=== PATIENT | male | born 1980 | race American Indian/Alaskan Native ===

== ENCOUNTER 2017-04-02 23:52 | Emergency (ER) | payer SELFPAY ==
[2017-04-03] MEDS ORDERED: MOTRIN PO ONE (00:11)
[2017-04-03 00:28] VITALS: BP 100/78
--- NOTE | 2017-04-03 01:16 | XRay Report ---
FINAL REPORT PROCEDURE: XR FOREARM RT TECHNIQUE: RIGHT forearm radiographs, AP and lateral views. CPT 38366 HISTORY: laceration with glass COMPARISON: No prior studies are available for comparison. FINDINGS: Fracture (s) and/or Dislocation(s): None . Joint space(s): Normal . Soft tissues: Normal . Bone mineralization: Normal . Foreign bodies: None . IMPRESSION: Normal Examination
[2017-04-03] MEDS ORDERED: XYLOCAINE 2%/ EPI 1:200,000 INFILTRATI ONE (03:40)
[2017-04-03] MEDS ORDERED: XYLOCAINE 2% INFILTRATI ONE (03:47)
[2017-04-03] MEDS ORDERED: NORCO 7.5/325 PO ONE (04:08)
--- NOTE | 2017-04-03 05:00 | Emergency Department Report ---
- General Chief Complaint: Wound/Laceration Stated Complaint: RIGHT ARM LACERATION Time Seen by Provider: 04/03/17 03:59 Source: patient Mode of arrival: Ambulatory Limitations: No Limitations - History of Present Illness Initial Comments: 37-year-old -[place] male comes in for sustain a laceration on right forearm after fish tank fell and broke. Patient reports pain to 8 out of 10. He had ibuprofen at triage. He reports he does not know when his last tetanus. He has no past medical history currently takes no medications has no known drug allergies. -: Sudden Location: other (right forearm) Extremity Location: Right: Forearm Place: work Patient Tetanus UTD: No Context: accidental Associated Symptoms: pain - Related Data Previous Rx's Medication Instructions Recorded Last Taken Type Amoxicillin [Amoxicillin TAB] 875 mg PO BID #20 tablet 11/04/13 Unknown Rx Ibuprofen [Motrin 800 MG tab] 800 mg PO Q8H PRN #30 tablet 11/04/13 Unknown Rx Cephalexin [Keflex] 500 mg PO BID #20 capsule 04/03/17 Unknown Rx Ibuprofen 800 mg PO Q8HR PRN #15 tablet 04/03/17 Unknown Rx Allergies Allergy/AdvReac Type Severity Reaction Status Date / Time No Known Allergies Allergy Verified 11/04/13 17:39 ED Review of Systems ROS: Stated complaint: RIGHT ARM LACERATION Other details as noted in HPI ED Past Medical Hx - Past Medical History Previous Medical History?: No - Surgical History Past Surgical History?: No - Social History Smoking Status: Current Some Day Smoker Substance Use Type: None - Medications Home Medications: Home Medications Medication Instructions Recorded Confirmed Last Taken Type Amoxicillin [Amoxicillin TAB] 875 mg PO BID #20 tablet 11/04/13 Unknown Rx Ibuprofen [Motrin 800 MG tab] 800 mg PO Q8H PRN #30 tablet 11/04/13 Unknown Rx Cephalexin [Keflex] 500 mg PO BID #20 capsule 04/03/17 Unknown Rx Ibuprofen 800 mg PO Q8HR PRN #15 tablet 04/03/17 Unknown Rx ED Physical Exam - General Limitations: No Limitations ED Course Vital Signs 04/02/17 23:57 Temperature 98.2 F Pulse Rate 66 Respiratory 18 Rate Blood Pressure 100/78 O2 Sat by Pulse 99 Oximetry - Laceration /Wound Repair Left Proximal Arm Wound Location: upper extremity Irrigated w/ Saline (ccs): 30 Betadine Prep?: Yes Anesthesia: 1% Lidocaine Volume Anesthetic (ccs): 7 Wound Debrided: minimal Wound Repaired With: sutures Suture Size/Type: 3:0 Number of Sutures: 12 Layer Closure?: No Sterile Dressing Applied?: Yes Progress: Tolerated well ED Medical Decision Making - Medical Decision Making This is been evaluated by this provider fast track. I discussed the patient we' ll give him a [place] for pain. We will need to suture the wound. Discussed the patient placement antibiotics. He needs to return back to the emergency room within 7-10 days for sutural removal area discussed that he needs to keep the area clean and dry return sooner if he notices any infection redness purulent discharge swelling. Please keep the bandage clean and dry. Critical care attestation.: If time is entered above; I have spent that time in minutes in the direct care of this critically ill patient, excluding procedure time. ED Disposition Clinical Impression: Laceration of forearm, right Qualifiers: Encounter type: initial encounter Qualified Code(s): S51.811A - Laceration without foreign body of right forearm, initial encounter Disposition: DC-01 TO HOME OR SELFCARE Is pt being admited?: No Does the pt Need Aspirin: No Condition: Stable Instructions: Suture Care (ED), Laceration (ED) Additional Instructions: You needs to return back to the emergency room within 7-10 days for sutural removal.Please keep the area clean and dry return sooner if he notices any infection redness purulent discharge swelling. Please keep the bandage clean and dry. Prescriptions: Cephalexin [Keflex] 500 mg PO BID #20 capsule Ibuprofen 800 mg PO Q8HR PRN #15 tablet PRN Reason: Pain Referrals: BILLY MERAZ MD [Primary Care Provider] - 3-5 Days Forms: Work/School Release Form(ED), Accompanied Note
== END 2017-04-03 05:15 | disposition home or self-care (01) ==
LOC: ED 23:52
DX: S51.811A Laceration without foreign body of right forearm, initial encounter (principal); F17.200 Nicotine dependence, unspecified, uncomplicated; W22.8XXA Striking against or struck by other objects, initial encounter; Y93.89 Activity, other specified; Y92.89 Other specified places as the place of occurrence of the external cause; Y99.8 Other external cause status
CPT/HCPCS: 99283

== ENCOUNTER 2017-04-12 06:28 | Emergency (ER) | payer SELFPAY ==
[2017-04-12 06:38] VITALS: BP 119/89
--- NOTE | 2017-04-12 07:41 | Emergency Department Report ---
Suture/Staple Removal - [facility] Chief Complaint: Laceration/Recheck/Suture Stated Complaint: SUTURE REMOVAL Time Seen by Provider: 04/12/17 07:17 When Sutures or [place] Placed: 8-10 Days Ago Wound Location: right arm ED Review of Systems ROS: Stated complaint: SUTURE REMOVAL Other details as noted in HPI Constitutional: denies: chills, fever Eyes: denies: eye pain, eye discharge, vision change ENT: denies: ear pain, throat pain Respiratory: denies: cough, shortness of breath, wheezing Cardiovascular: denies: chest pain, palpitations Endocrine: no symptoms reported Gastrointestinal: denies: abdominal pain, nausea, diarrhea Genitourinary: denies: urgency, dysuria Musculoskeletal: denies: back pain, joint swelling, arthralgia Skin: denies: rash, lesions Neurological: denies: headache, weakness, paresthesias Psychiatric: denies: anxiety, depression Hematological/Lymphatic: denies: easy bleeding, easy bruising ED Past Medical Hx - Past Medical History Previous Medical History?: No - Surgical History Past Surgical History?: No - Social History Smoking Status: Never Smoker Substance Use Type: None - Medications Home Medications: Home Medications Medication Instructions Recorded Confirmed Last Taken Type Amoxicillin [Amoxicillin TAB] 875 mg PO BID #20 tablet 11/04/13 Unknown Rx Ibuprofen [Motrin 800 MG tab] 800 mg PO Q8H PRN #30 tablet 11/04/13 Unknown Rx Cephalexin [Keflex] 500 mg PO BID #20 capsule 04/03/17 Unknown Rx Ibuprofen 800 mg PO Q8HR PRN #15 tablet 04/03/17 Unknown Rx Suture Removal Exam - Exam General: Vital signs noted. No distress. Alert and acting appropriately. Wound: No Pathologic Erythema, No Tenderness, No Drainage, No Pus, No Wound Dehiscence Other Systems: All other systems reviewed and are unremarkable. ED Course Vital Signs 04/12/17 06:34 Temperature 98 F Pulse Rate 65 Respiratory 16 Rate Blood Pressure 119/89 O2 Sat by Pulse 99 Oximetry ED Recheck MDM - Medical Decision Making 29-year-old male presents with suture removal Laceration was cleaned with alcohol, 12 sutures were removed, wound was cleaned and sterilely draped I discussed the patient to apply triple antibiotic daily. I discussed acute wound care with the patient. Vital signs are normal patient has not acute distress Critical care attestation.: If time is entered above; I have spent that time in minutes in the direct care of this critically ill patient, excluding procedure time. ED Disposition Clinical Impression: Visit for suture removal Disposition: DC- TO HOME OR SELFCARE Is pt being admited?: No Does the pt Need Aspirin: No Condition: Stable Instructions: Acute Wound Care (ED) Additional Instructions: Make sure to follow up with the primary care physician as discussed. Take all your medications as you've been prescribed. If you have any worsening symptoms or develop new symptoms please return to ED immediately. Referrals: PRIMARY CARE, [Primary Care Provider] - 3-5 Days Forms: Work/School Release Form(ED) Time of Disposition: 07:40
== END 2017-04-12 07:49 | disposition home or self-care (01) ==
LOC: ED 06:28
DX: S41.111D Laceration without foreign body of right upper arm, subsequent encounter (principal); W45.8XXD Other foreign body or object entering through skin, subsequent encounter

== ENCOUNTER 2018-08-26 12:52 | Emergency (ER) | payer SELFPAY ==
[2018-08-26 13:07] VITALS: BP 111/73
--- NOTE | 2018-08-26 13:19 | Emergency Department Report ---
ED ENT HPI - General Chief complaint: Earache Stated complaint: EAR PAIN Time Seen by Provider: 08/26/18 13:06 Source: patient Mode of arrival: Ambulatory Limitations: No Limitations - History of Present Illness Initial comments: 38 y/o male comes in for right ear pain and drainage for the last 3 day. No fever. MD complaint: ear pain Onset/Timin -: days(s) Location: L ear Severity: moderate Quality: aching Consistency: constant Improves with: none Worsens with: none Context- Ear: other (Washed his hair) Associated Symptoms: discharge from ear - Related Data Previous Rx's Medication Instructions Recorded Last Taken Type Ibuprofen [Motrin 800 MG tab] 800 mg PO Q8H PRN #30 tablet 11/04/13 Unknown Rx Cephalexin [Keflex] 500 mg PO BID #20 capsule 04/03/17 Unknown Rx Ibuprofen [Ibuprofen 800] 800 mg PO Q8HR PRN #15 tablet 04/03/17 Unknown Rx Amoxicillin [Amoxicillin TAB] 875 mg PO BID #20 tablet 08/26/18 Unknown Rx Ibuprofen [Motrin 800 MG tab] 800 mg PO Q8HR PRN #30 tablet 08/26/18 Unknown Rx Allergies Allergy/AdvReac Type Severity Reaction Status Date / Time No Known Allergies Allergy Verified 08/26/18 13:07 ED Dental HPI - General Chief complaint: Earache Stated complaint: EAR PAIN Time Seen by Provider: 08/26/18 13:06 Source: patient Mode of arrival: Ambulatory Limitations: No Limitations - Related Data Previous Rx's Medication Instructions Recorded Last Taken Type Ibuprofen [Motrin 800 MG tab] 800 mg PO Q8H PRN #30 tablet 11/04/13 Unknown Rx Cephalexin [Keflex] 500 mg PO BID #20 capsule 04/03/17 Unknown Rx Ibuprofen [Ibuprofen 800] 800 mg PO Q8HR PRN #15 tablet 04/03/17 Unknown Rx Amoxicillin [Amoxicillin TAB] 875 mg PO BID #20 tablet 08/26/18 Unknown Rx Ibuprofen [Motrin 800 MG tab] 800 mg PO Q8HR PRN #30 tablet 08/26/18 Unknown Rx Allergies Allergy/AdvReac Type Severity Reaction Status Date / Time No Known Allergies Allergy Verified 08/26/18 13:07 ED Review of Systems ROS: Stated complaint: EAR PAIN Other details as noted in HPI Comment: All other systems reviewed and negative ENT: ear pain ED Past Medical Hx - Social History Smoking Status: Current Some Day Smoker Substance Use Type: None - Medications Home Medications: Home Medications Medication Instructions Recorded Confirmed Last Taken Type Ibuprofen [Motrin 800 MG tab] 800 mg PO Q8H PRN #30 tablet 11/04/13 Unknown Rx Cephalexin [Keflex] 500 mg PO BID #20 capsule 04/03/17 Unknown Rx Ibuprofen [Ibuprofen 800] 800 mg PO Q8HR PRN #15 tablet 04/03/17 Unknown Rx Amoxicillin [Amoxicillin TAB] 875 mg PO BID #20 tablet 08/26/18 Unknown Rx Ibuprofen [Motrin 800 MG tab] 800 mg PO Q8HR PRN #30 tablet 08/26/18 Unknown Rx ED Physical Exam - General Limitations: No Limitations General appearance: alert, in no apparent distress - Head Head exam: Present: atraumatic, normocephalic - Expanded ENT Exam Expanded TM/Canal exam: Perforation: Left TM, Canal Discharge: Left TM - Neurological Exam Neurological exam: Present: alert, oriented X3 - Psychiatric Psychiatric exam: Present: normal affect, normal mood - Skin Skin exam: Present: warm, dry, intact, normal color. Absent: rash ED Course Vital Signs 08/26/18 13:05 Temperature 98.1 F Pulse Rate 65 Respiratory 16 Rate Blood Pressure 111/73 O2 Sat by Pulse 99 Oximetry Critical care attestation.: If time is entered above; I have spent that time in minutes in the direct care of this critically ill patient, excluding procedure time. ED Disposition Clinical Impression: Perforated left tympanic membrane on examination Disposition: DC-01 TO HOME OR SELFCARE Is pt being admited?: No Does the pt Need Aspirin: No Condition: Stable Instructions: Ruptured Eardrum (ED) Additional Instructions: Complete medication as prescribed. It may take time for the eardrum to heal. 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 Prescriptions: Amoxicillin [Amoxicillin TAB] 875 mg PO BID #20 tablet Ibuprofen [Motrin 800 MG tab] 800 mg PO Q8HR PRN #30 tablet PRN Reason: Pain , Severe (7-10) Referrals: GILBERTO FARRELL MD [Staff Physician] - 3-5 Days Forms: Work/School Release Form(ED)
== END 2018-08-26 13:30 | disposition home or self-care (01) ==
LOC: ED 12:52
DX: H72.92 Unspecified perforation of tympanic membrane, left ear (principal); F17.200 Nicotine dependence, unspecified, uncomplicated

== ENCOUNTER 2021-02-07 14:13 | Emergency (ER) | payer BC ==
[2021-02-07 14:52] VITALS: BP 115/79
--- NOTE | 2021-02-07 16:24 | Emergency Department Report ---
ED ENT HPI - General Chief complaint: Earache Stated complaint: LEFT EAR ACHE Source: patient Mode of arrival: Ambulatory Limitations: No Limitations - History of Present Illness Initial comments: 40-year-old male presents to the ER today with complaints of left ear pain. Patient states that his pain started a couple days ago. Patient states that he did notice some slight yellow discharge from the ear. He states that he did go to the [facility] a few days ago and may have gotten water in his ear but is not sure. He denies any bleeding from the area of injury. He states that he has not been sick with any URI symptoms lately. He denies any fever or chills. MD complaint: ear pain -: days(s) (2) - Related Data Previous Rx's Medication Instructions Recorded Last Taken Type Ibuprofen [Motrin 800 MG tab] 800 mg PO Q8H PRN #30 tablet 11/04/13 Unknown Rx Ibuprofen [Ibuprofen 800] 800 mg PO Q8HR PRN #15 tablet 04/03/17 Unknown Rx Amoxicillin/K Clav Tab [Augmentin 1 tab PO Q12HR #14 tab 02/07/21 Unknown Rx 875 mg] Fluticasone [Flonase] 2 spray NS QDAY #1 bottle 02/07/21 Unknown Rx Ibuprofen [Motrin 800 MG tab] 800 mg PO Q8HR PRN #30 tablet 02/07/21 Unknown Rx Allergies Allergy/AdvReac Type Severity Reaction Status Date / Time No Known Allergies Allergy Verified 08/26/18 13:07 ED Dental HPI - General Chief complaint: Earache Stated complaint: LEFT EAR ACHE Source: patient Mode of arrival: Ambulatory Limitations: No Limitations - Related Data Previous Rx's Medication Instructions Recorded Last Taken Type Ibuprofen [Motrin 800 MG tab] 800 mg PO Q8H PRN #30 tablet 11/04/13 Unknown Rx Ibuprofen [Ibuprofen 800] 800 mg PO Q8HR PRN #15 tablet 04/03/17 Unknown Rx Amoxicillin/K Clav Tab [Augmentin 1 tab PO Q12HR #14 tab 02/07/21 Unknown Rx 875 mg] Fluticasone [Flonase] 2 spray NS QDAY #1 bottle 02/07/21 Unknown Rx Ibuprofen [Motrin 800 MG tab] 800 mg PO Q8HR PRN #30 tablet 02/07/21 Unknown Rx Allergies Allergy/AdvReac Type Severity Reaction Status Date / Time No Known Allergies Allergy Verified 08/26/18 13:07 ED Review of Systems ROS: Stated complaint: LEFT EAR ACHE Other details as noted in HPI Comment: All other systems reviewed and negative Constitutional: denies: chills, fever Eyes: denies: eye pain, eye discharge, vision change ENT: ear pain. denies: throat pain, dental pain, hearing loss, epistaxis, congestion Respiratory: denies: cough, shortness of breath, SOB with exertion, SOB at rest, wheezing Cardiovascular: denies: chest pain, palpitations, dyspnea on exertion, orthopnea, edema, syncope, paroxysmal nocturnal dyspnea Gastrointestinal: denies: abdominal pain, nausea, diarrhea, constipation, hematemesis, hematochezia Genitourinary: denies: urgency, dysuria, frequency, hematuria, discharge, testicular pain, testicular mass Musculoskeletal: denies: back pain, joint swelling, arthralgia Skin: denies: rash, lesions Neurological: denies: headache, weakness, numbness, paresthesias, confusion, abnormal gait, vertigo Psychiatric: denies: anxiety, depression, auditory hallucinations, visual hallucinations, homicidal thoughts, suicidal thoughts Hematological/Lymphatic: denies: easy bleeding, easy bruising, swollen glands ED Past Medical Hx - Social History Smoking Status: Current Some Day Smoker Substance Use Type: None - Medications Home Medications: Home Medications Medication Instructions Recorded Confirmed Last Taken Type Ibuprofen [Motrin 800 MG tab] 800 mg PO Q8H PRN #30 tablet 11/04/13 Unknown Rx Ibuprofen [Ibuprofen 800] 800 mg PO Q8HR PRN #15 tablet 04/03/17 Unknown Rx Amoxicillin/K Clav Tab [Augmentin 1 tab PO Q12HR #14 tab 02/07/21 Unknown Rx 875 mg] Fluticasone [Flonase] 2 spray NS QDAY #1 bottle 02/07/21 Unknown Rx Ibuprofen [Motrin 800 MG tab] 800 mg PO Q8HR PRN #30 tablet 02/07/21 Unknown Rx ED Physical Exam - General Limitations: No Limitations General appearance: alert, in no apparent distress - Head Head exam: Present: atraumatic, normocephalic, normal inspection - Eye Eye exam: Present: normal appearance, PERRL, EOMI Pupils: Present: normal accommodation - ENT ENT exam: Present: normal exam, mucous membranes moist - Expanded ENT Exam Expanded TM/Canal exam: Erythema: Left TM, Bulging: Left TM, Effusion: Left TM Mouth exam: Present: normal external inspection - Neck Neck exam: Present: normal inspection, full ROM. Absent: meningismus - Respiratory Respiratory exam: Present: normal lung sounds bilaterally. Absent: respiratory distress, wheezes, rales, rhonchi - Cardiovascular Cardiovascular Exam: Present: regular rate, normal rhythm, normal heart sounds - Neurological Exam Neurological exam: Present: alert, oriented X3, CN II-XII intact, normal gait - Psychiatric Psychiatric exam: Present: normal affect, normal mood - Skin Skin exam: Present: intact ED Course Vital Signs 02/07/21 14:50 Temperature 98.1 F Pulse Rate 55 L Respiratory 15 Rate Blood Pressure 115/79 O2 Sat by Pulse 99 Oximetry Critical care attestation.: If time is entered above; I have spent that time in minutes in the direct care of this critically ill patient, excluding procedure time. ED Disposition Clinical Impression: Suppurative otitis media, Otitis externa Disposition: HOME / SELF CARE / HOMELESS Is pt being admited?: No Does the pt Need Aspirin: No Condition: Stable Instructions: Otitis Media, Adult, [id number], Otitis Externa, [id number] Additional Instructions: Recommend that you use the ofloxacin otic, take the Augmentin as prescribed to help with the infection. I recommend that you take Sudafed from [id number] to help with decongestion, and use the Flonase as prescribed to also help with decongestion. Take the ibuprofen as prescribed for pain. Recommend no more peroxide in your ear. Try to avoid any water getting into your ear. Follow-up with your PCP. Return to the ER if worse. Prescriptions: Amoxicillin/K Clav Tab [Augmentin 875 mg] 1 tab PO Q12HR #14 tab Fluticasone [Flonase] 2 spray NS QDAY #1 bottle Ibuprofen [Motrin 800 MG tab] 800 mg PO Q8HR PRN #30 tablet PRN Reason: Pain , Severe (7-10) Referrals: PRIMARY CARE, [Referring] - 3-5 Days Time of Disposition: 16:24
== END 2021-02-07 16:44 | disposition home or self-care (01) ==
LOC: ED 14:13
DX: H66.002 Acute suppurative otitis media without spontaneous rupture of ear drum, left ear (principal); H60.8X2 Other otitis externa, left ear
CPT/HCPCS: 99282

== ENCOUNTER 2021-10-22 01:23 | Emergency (ER) | payer BC ==
[2021-10-22] MEDS ORDERED: ONDANSETRON 4 MG ODT TAB PO ONE (02:09)
[2021-10-22 03:35] LABS: Basophils % (Auto) 0.2 % (0.0-1.8); Eosinophils # (Auto) 0.1 K/mm3 (0.0-0.4); Eosinophils % (Auto) 0.7 % (0.0-4.3); Hematocrit 47.3 % (35.5-45.6); Hemoglobin 15.9 gm/dl (11.8-15.2); Lymphocytes # (Auto) 0.7 K/mm3 (1.2-5.4); Lymphocytes % (Auto) 4.1 % (13.4-35.0); Mean Corpuscular HGB Conc 34 % (32-34); Mean Corpuscular Volume 96 fl (84-94); Monocytes # (Auto) 1.2 K/mm3 (0.0-0.8); Monocytes % (Auto) 7.4 % (0.0-7.3); Platelet Count 222 K/mm3 (140-440); Red Blood Count 4.95 M/mm3 (3.65-5.03); Red Cell Distribution Width 13.5 % (13.2-15.2)
[2021-10-22 05:07] LABS: Alanine Aminotransferase 11 units/L (7-56); Albumin 5.1 g/dL (3.9-5); BUN/Creatinine Ratio 9; Blood Urea Nitrogen 8 mg/dL (9-20); Calcium 9.9 mg/dL (8.4-10.2); Hemolysis Index 7
[2021-10-22] MEDS ORDERED: SODIUM CHLORIDE 0.9% 1000 ML 1,000 ML IV ONE (09:02)
[2021-10-22] MEDS ORDERED: DICYCLOMINE 20 MG TAB PO ONE (09:03)
[2021-10-22] MEDS ORDERED: ONDANSETRON 4 MG/2 ML INJ IV ONE (09:03)
--- NOTE | 2021-10-22 09:31 | Emergency Department Report ---
ED Abdominal Pain HPI - General Chief Complaint: Nausea/Vomiting/Diarrhea Stated Complaint: EMESIS/ABD PAIN/SOB Source: patient, family Mode of arrival: Wheelchair Limitations: No Limitations - History of Present Illness Initial Comments: 41-year-old male presents to the ED complaining of abdominal cramping and vomiting x1 day. Patient states that he walked up some leftover cabbage after eating cabbage, began to vomit. She states that he is unable to hold down food or liquids without vomiting. Patient denies any diarrhea at present time. He states that abdominal cramping is a 5 out of 10. Denies any fever chills. Patient is alert and oriented x3. No acute distress noted. No ill appearance noted. MD Complaint: abdominal pain - Related Data Previous Rx's Medication Instructions Recorded Last Taken Type Ibuprofen [Motrin 800 MG tab] 800 mg PO Q8H PRN #30 tablet 11/04/13 Unknown Rx Ibuprofen [Ibuprofen 800] 800 mg PO Q8HR PRN #15 tablet 04/03/17 Unknown Rx Amoxicillin/K Clav Tab [Augmentin 1 tab PO Q12HR #14 tab 02/07/21 Unknown Rx 875 mg] Fluticasone [Flonase] 2 spray NS QDAY #1 bottle 02/07/21 Unknown Rx Ibuprofen [Motrin 800 MG tab] 800 mg PO Q8HR PRN #30 tablet 02/07/21 Unknown Rx Ofloxacin 0.3% [Floxin 0.3% Otic] 10 drops OT DAILY 7 Days #1 bottle 02/07/21 Unknown Rx Acetaminophen/Codeine [Tylenol 1 tab PO Q6H PRN #12 tab 10/22/21 Unknown Rx /Codeine # 3 tab] Ondansetron [Zofran ODT TAB] 8 mg PO DAILY 3 Days #12 tab 10/22/21 Unknown Rx Allergies Allergy/AdvReac Type Severity Reaction Status Date / Time No Known Allergies Allergy Verified 08/26/18 13:07 ED Review of Systems ROS: Stated complaint: EMESIS/ABD PAIN/SOB Other details as noted in HPI Constitutional: denies: chills, fever Eyes: denies: eye pain, eye discharge, vision change ENT: denies: ear pain, throat pain Respiratory: denies: cough, shortness of breath, wheezing Cardiovascular: denies: chest pain, palpitations Endocrine: no symptoms reported Gastrointestinal: denies: abdominal pain, nausea, diarrhea Genitourinary: denies: urgency, dysuria Musculoskeletal: denies: back pain, joint swelling, arthralgia Skin: denies: rash, lesions Neurological: denies: headache, weakness, paresthesias Psychiatric: denies: anxiety, depression Hematological/Lymphatic: denies: easy bleeding, easy bruising ED Past Medical Hx - Past Medical History Previous Medical History?: No - Surgical History Past Surgical History?: No - Social History Smoking Status: Unknown if ever smoked Substance Use Type: None - Medications Home Medications: Home Medications Medication Instructions Recorded Confirmed Last Taken Type Ibuprofen [Motrin 800 MG tab] 800 mg PO Q8H PRN #30 tablet 11/04/13 Unknown Rx Ibuprofen [Ibuprofen 800] 800 mg PO Q8HR PRN #15 tablet 04/03/17 Unknown Rx Amoxicillin/K Clav Tab [Augmentin 1 tab PO Q12HR #14 tab 02/07/21 Unknown Rx 875 mg] Fluticasone [Flonase] 2 spray NS QDAY #1 bottle 02/07/21 Unknown Rx Ibuprofen [Motrin 800 MG tab] 800 mg PO Q8HR PRN #30 tablet 02/07/21 Unknown Rx Ofloxacin 0.3% [Floxin 0.3% Otic] 10 drops OT DAILY 7 Days #1 bottle 02/07/21 Unknown Rx Acetaminophen/Codeine [Tylenol 1 tab PO Q6H PRN #12 tab 10/22/21 Unknown Rx /Codeine # 3 tab] Ondansetron [Zofran ODT TAB] 8 mg PO DAILY 3 Days #12 tab 10/22/21 Unknown Rx ED Physical Exam - General Limitations: No Limitations General appearance: alert, in no apparent distress - Head Head exam: Present: atraumatic, normocephalic - Eye Eye exam: Present: normal appearance - ENT ENT exam: Present: mucous membranes moist - Neck Neck exam: Present: normal inspection - Respiratory Respiratory exam: Present: normal lung sounds bilaterally. Absent: respiratory distress - Cardiovascular Cardiovascular Exam: Present: regular rate, normal rhythm. Absent: systolic murmur, diastolic murmur, rubs, gallop - GI/Abdominal GI/Abdominal exam: Present: soft, normal bowel sounds - Rectal Rectal exam: Present: deferred - Extremities Exam Extremities exam: Present: normal inspection - Back Exam Back exam: Present: normal inspection - Neurological Exam Neurological exam: Present: alert, oriented X3 - Psychiatric Psychiatric exam: Present: normal affect, normal mood - Skin Skin exam: Present: warm, dry, intact, normal color. Absent: rash ED Course Vital Signs 10/22/21 02:08 Temperature 100.0 F H Pulse Rate 63 Respiratory 18 Rate Blood Pressure 127/92 O2 Sat by Pulse 100 Oximetry ED Medical Decision Making - Lab Data Result diagrams: 10/22/21 02:44 10/22/21 02:44 - Radiology Data [facility] [address] [place] [address] Cat Scan Report Signed Patient: JESSY WALLER MR#: [id number] : 1980 Acct:[id number] Age/Sex: 41 / M ADM Date: 10/22/21 Loc: ED Attending Dr: Ordering Physician: LIZBETH YEN Date of Service: 10/22/21 Procedure(s): CT abdomen pelvis w con Accession Number(s): [id number] cc: LIZBETH YEN CT ABDOMEN AND PELVIS WITH CONTRAST INDICATION / CLINICAL INFORMATION: generalize abd pain. TECHNIQUE: Axial CT images were obtained through the abdomen and pelvis after IV contrast. All CT scans at this location are performed using CT dose reduction for ALARA by means of automated exposure control. COMPARISON: None available. FINDINGS: LOWER CHEST: No significant abnormality. LIVER: No significant abnormality. GALLBLADDER: No significant abnormality. BILE DUCTS: No significant abnormality. PANCREAS: No significant abnormality. SPLEEN: No significant abnormality. ADRENALS: No significant abnormality. RIGHT KIDNEY / URETER: No significant abnormality. LEFT KIDNEY / URETER: No significant abnormality. STOMACH / SMALL BOWEL: Gastric diverticulum arising from the posterior fundus. There are air and fluid-filled loops of small bowel measuring up to 3.1 cm. without discrete transition point. COLON: There is a round well-circumscribed soft tissue density within the mid to distal transverse colon measuring 2.0 x 2.2 x 2.3 cm (series 2 image 76, series 602 image 99, series 601 image 22). APPENDIX: Moderately distended measuring up to 11 mm in cross-section (series 2 image 126, series 602 image 58). PERITONEUM: No free fluid. No free air. No fluid collection. LYMPH NODES: No significant adenopathy. AORTA / ARTERIES: No significant abnormality. IVC / VEINS: No significant abnormality. URINARY BLADDER: No significant abnormality. REPRODUCTIVE ORGANS: No significant abnormality. ADDITIONAL FINDINGS: None. SKELETAL SYSTEM: There is a geographic peripherally sclerotic lesion within the left proximal femur with well-defined in Opal transition measuring 5.1 x 2.5 x 1.7 cm. IMPRESSION: 1. Dilated appendix measuring up to 11 mm in cross-section, possibly representing acute uncomplicated appendicitis. 2. Numerous air and fluid-filled loops of small bowel with mild distention, suggestive of enteritis. 3. Well-circumscribed soft tissue density within the mid to distal transverse colon measuring up to 2.3 cm. This could represent a colonic neoplasm. Colonoscopy is recommended. Signer Name: Mayra Tucker MD Signed: 10/22/2021 10:14 AM Workstation Name: [id number] [id number] Transcribed By: Dictated By: MAYRA TUCKER MD Electronically Authenticated By: MAYRA TUCKER MD Signed Date/Time: 10/22/21 1014 DD/ 0956 TD/TT: - Medical Decision Making 41-year-old male presents to the ED complaining of abdominal cramping and vomiting x1 day. Patient states that he walked up some leftover cabbage after eating cabbage, began to vomit. She states that he is unable to hold down food or liquids without vomiting. Patient denies any diarrhea at present time. He states that abdominal cramping is a 5 out of 10. Denies any fever chills. Patient is alert and oriented x3. No acute distress noted. No ill appearance noted. Physical examination patient has abdominal tenderness in all 4 quadrant. Normal saline x 1 liter , Zofran 4 mg IV, and Bentyl [address] report shows:IMPRESSION: 1. Dilated appendix measuring up to 11 mm in cross-section, possibly representing acute uncomplicated appendicitis. 2. Numerous air and fluid-filled loops of small bowel with mild distention, suggestive of enteritis. 3. Well-circumscribed soft tissue density within the mid to distal transverse colon measuring up to 2.3 cm. This could represent a colonic neoplasm. Colonoscopy is recommended. Consulted with . Patient will have outpatient surgery on monday ,October Rechecked the patient is resting quietly , comfortable and feeling better. I discussed the results of diagnostic study, my clinical impression and the plan for further treatment with the patient. Patient agrees with plan and discharge at this present time. All question addressed. I have given the patient instruction regarding a diagnosis ,expectation ,follow- up and return precaution. I explained to the patient that emergent condition may arise and to return to the ED for new worsen and any new persisting condition. I have explained the importance of following up with the primary care physician or referral physician listed below has instructed. The patient verbalized understanding of discharge instruction. Critical care attestation.: If time is entered above; I have spent that time in minutes in the direct care of this critically ill patient, excluding procedure time. ED Disposition Clinical Impression: Abdominal pain Qualifiers: Abdominal location: generalized Qualified Code(s): R10.84 - Generalized abdominal pain Disposition: 01 HOME / SELF CARE / HOMELESS Is pt being admited?: No Does the pt Need Aspirin: No Condition: Stable Instructions: Abdominal Pain, Adult Additional Instructions: take Medication as prescribed Return to the ED for any worsening symptom Prescriptions: Acetaminophen/Codeine [Tylenol /Codeine # 3 tab] 1 tab PO Q6H PRN #12 tab PRN Reason: Pain, Moderate (4-6) Ondansetron [Zofran ODT TAB] 8 mg PO DAILY 3 Days #12 tab Referrals: MARIA R MORATAYA MD [Primary Care Provider] - 3-5 Days EBONY BENITEZ MD [Staff Physician] - 3-5 Days Forms: Work/School Release Form(ED) Time of Disposition: 12:48
--- NOTE | 2021-10-22 10:18 | Cat Scan Report ---
CT ABDOMEN AND PELVIS WITH CONTRAST INDICATION / CLINICAL INFORMATION: generalize abd pain. TECHNIQUE: Axial CT images were obtained through the abdomen and pelvis after IV contrast. All CT sc ans at this location are performed using CT dose reduction for ALARA by means of automated exposure c ontrol. COMPARISON: None available. FINDINGS: LOWER CHEST: No significant abnormality. LIVER: No significant abnormality. GALLBLADDER: No significant abnormality. BILE DUCTS: No significant abnormality. PANCREAS: No significant abnormality. SPLEEN: No significant abnormality. ADRENALS: No significant abnormality. RIGHT KIDNEY / URETER: No significant abnormality. LEFT KIDNEY / URETER: No significant abnormality. STOMACH / SMALL BOWEL: Gastric diverticulum arising from the posterior fundus. There are air and flui d-filled loops of small bowel measuring up to 3.1 cm. without discrete transition point. COLON: There is a round well-circumscribed soft tissue density within the mid to distal transverse co alfonso measuring 2.0 x 2.2 x 2.3 cm (series 2 image 76, series 602 image 99, series 601 image 22). APPENDIX: Moderately distended measuring up to 11 mm in cross-section (series 2 image 126, series 602 image 58). PERITONEUM: No free fluid. No free air. No fluid collection. LYMPH NODES: No significant adenopathy. AORTA / ARTERIES: No significant abnormality. IVC / VEINS: No significant abnormality. URINARY BLADDER: No significant abnormality. REPRODUCTIVE ORGANS: No significant abnormality. ADDITIONAL FINDINGS: None. SKELETAL SYSTEM: There is a geographic peripherally sclerotic lesion within the left proximal femur w ith well-defined in Opal transition measuring 5.1 x 2.5 x 1.7 cm. IMPRESSION: 1. Dilated appendix measuring up to 11 mm in cross-section, possibly representing acute uncomplicated appendicitis. 2. Numerous air and fluid-filled loops of small bowel with mild distention, suggestive of enteritis. 3. Well-circumscribed soft tissue density within the mid to distal transverse colon measuring up to 2 .3 cm. This could represent a colonic neoplasm. Colonoscopy is recommended. Signer Name: Ike Tucker MD Signed: 10/22/2021 10:14 AM Workstation Name: [employer]
[2021-10-22 13:28] VITALS: BP 122/83
== END 2021-10-22 13:15 | disposition home or self-care (01) ==
LOC: ED 01:23
DX: R10.9 Unspecified abdominal pain (principal)
CPT/HCPCS: 36415; 74177; 80053; 83690; 85025; 96361; 96374; 99284; J2405; J7030; Q9967; J3490; Q0162

== ENCOUNTER 2021-11-02 06:54 | Day surgery (SDC) | payer BC ==
[2021-11-02] MEDS ORDERED: SODIUM CHLORIDE 0.9% 1000 ML 1,000 ML IV SCH (07:00)
--- NOTE | 2021-11-02 07:52 | Anesthesia Consultation ---
Anesthesia Consult and Med Hx Date of service: 11/02/21 - Airway Anesthetic Teeth Evaluation: Good ROM Head & Neck: Adequate Mental/Hyoid Distance: Adequate Mallampati Class: Class I Intubation Access Assessment: Good - Cardiac Exam Cardiac Exam: RRR - Pre-Operative Health Status ASA Pre-Surgery Classification: ASA2 Proposed Anesthetic Plan: IV Sedation - Pulmonary Hx Smoking: No Hx Asthma: No Hx Respiratory Symptoms: No SOB: No COPD: No Home Oxygen Therapy: No Hx Pneumonia: No Hx Sleep Apnea: No - Cardiovascular System Hx Hypertension: No Hx Coronary Artery Disease: No Hx Heart Attack/AMI: No Hx Cardia Arrhythmia: No Hx Pacemaker: No Hx Internal Defibrillator: No - Central Nervous System Hx Neuromuscular Disorder: No Hx Seizures: No Hx Back Pain: No Hx Psychiatric Problems: No - Gastrointestinal Hx Ulcer: No Hx Gastroesophageal Reflux Disease: No - Endocrine Hx Renal Disease: No Hx End Stage Renal Disease: No Hx Cirrhosis: No Hx Liver Disease: No Hx Insulin Dependent Diabetes: No Hx Non-Insulin Dependent Diabetes: No Hx Thyroid Disease: No - Hematic Hx Anemia: No Hx Sickle Cell Disease: No - Other Systems Hx Alcohol Use: Yes (Every other day.) - Additional Comments Anesthesia Medical History Comments: No anesthesia complications noted. 1st anesthetic. No family hx.
--- NOTE | 2021-11-02 07:52 | Anesthesia Day of Surgery ---
Anesthesia Day of Surgery - Day of Surgery Patient Examined: Yes Patient H&P Reviewed: Yes Patient is NPO: Yes Beta Blockers: No Cardiac Clearance: No Pulmonary Clearance: No Otis's Test: N/A
[2021-11-02] MEDS ORDERED: propofoL 200 MG/20 ML VIAL IV ONE ×4 (07:57→08:49)
[2021-11-02] MEDS ORDERED: LIDOCAINE PF 100 MG/5 ML (CARDIAC SYRINGE) IV ONE (08:00)
[2021-11-02] MEDS ORDERED: EPINEPHrine 1 MG/10 ML SYRINGE ONE (08:40)
[2021-11-02] MEDS ORDERED: EPINEPHrine 1 MG/10 ML SYRINGE IV ONE (08:50)
--- NOTE | 2021-11-02 09:28 | Operative Report ---
Operative Report Operative Report: Date: November 02, 2021 Preop: Diagnosis: Abnormal CT scan with lesion in transverse colon Postop: Diagnosis same, with small polyp in sigmoid(35cm), and large polyp on stalk in transverse colon (65vm) Procedure: Colonoscopy, polypectomy at 35cm and 65cm. Hemoclip deployed x2 and stateless ink tattoo Surgeon: Dr. Wild Air Sampler: None Anesthesia: MAC IV sedation Estimated blood loss: 30cc Specimen: polyp at 35cm and polyp at 65cm Findings: Patient is taken to the endoscopic suite timeouts are completed consent on the chart. Rectal exam is performed and is normal.: Scope was advanced through the rectum into the rectosigmoid colon. At 35 cm a small diminutive polyp was seen and removed with cold forceps. The sigmoid colon is inspected and is normal. The proximal transverse colon is identified and inspected and is normal. The bowel prep is good. At 65 cm a large polyp on a stalk is encountered and photographed. Colotip forcep biopsies obtained. Scope was then advanced down the ascending colon to the cecum. The mi'kmaq's foot ileocecal valve and appendiceal aperture are identified. Tip of the scope was confirmed to be in the right lower quadrant by palpation. Scope was slowly withdrawn confirming the above findings. A snare technique is used to remove the polyp in 2 pieces from the transverse colon. Inspection of the stalk initially showed hemostasis to be good. However as the stalk retracted it started to bleed. 2 hemoclips were deployed. This slowed the bleeding down significantly. The base of the stalk is then injected with epinephrine for good hemostasis. Laura ink is used to tattoo the circumference around the transverse colon adjacent to the polypectomy site. As the scope was withdrawn the polyp was not visualized because of the bleeding. The scope was then removed and the procedure is ended. The patient is taken to the recovery room where output from the rectum will be screened for the polyp tissue.
--- NOTE | 2021-11-02 10:53 | Post Anesthesia Evaluation ---
- Post Anesthesia Evaluation Patient Participated: Yes Airway Patent: Yes Stable Respiratory Function: Yes Nausea/Vomiting: No Temp > 96.8F: Yes Pain Manageable: Yes Adequeate Hydration: Yes Anesthesia Complications: No
[2021-11-02 15:50] VITALS: BP 119/74
== END 2021-11-02 06:55 | disposition home or self-care (01) ==
LOC: GIO 06:54
PROVIDERS: ATTEND Surgery
DX: R19.5 Other fecal abnormalities (principal); R10.9 Unspecified abdominal pain; K63.5 Polyp of colon; Z79.899 Other long term (current) drug therapy; Z87.891 Personal history of nicotine dependence; Z72.89 Other problems related to lifestyle
CPT/HCPCS: 45380; 45381; 45385; 88305; J0171; J2001; J2704; J7030